=== PATIENT | male | born 1930 | race African-American/Black ===

== ENCOUNTER → 2017-05-22 | Outpatient (CLI) | payer MEDICARE ==
[~2017-05-22] MED LIST: ADVAIR 100-501 EACH INH; ADVAIR 250-501 EACH IH; ANTI ITCH TOP; BESIVANCE5 ML OP; BROMDAY; BROMDAY1.7 ML OP; BYSTOLIC10 MG PO; COLACE PO; COUMADIN5 MG PO; CRESTOR PO; DIABETA5 M1 PO; HUMALOG100 U/M2 SQ; HYDROCODON-ACE1 EAC9 PO; IMDUR-ER30 M2 DOB; IRON1 TAB PO; IRON236 MG PO; JANUVIA50 MG PO; K-DUR20 ME2 DOB; LANTUS100 U/ML SUBQ; LASIX PO; LIVALO2 MG PO; LOTENSIN40 MG PO; MICRONASE5 M1 PO; MIRALAX17 GM DOB; MONTELUKAST SOD10 MG PO; OMEPRAZOLE20 M2 PO; PRED FORTE1 ML OP; PRILOSEC20 MG PO; PROAIR RESPICL90 MCG; PROSCAR5 MG PO; PROTONIX PO; PROVENTIL17 GM IH; SPIRIVA18 MCG INH; THEO-24100 MG; THEO-DUR300 MG PO; VESICARE PO; VITAMIN D50000 UNIT PO; [UNRECOGNIZED DRUG - OTHER]
== END | disposition home or self-care (01) ==
LOC: CRAD 09:44
DX: R13.10 Dysphagia, unspecified (principal); R13.12 Dysphagia, oropharyngeal phase
CPT/HCPCS: 74230; 92611; G8996-GN; G8997-GN; G8998-GN